=== PATIENT | female | born 1980 | race Caucasian/White ===

== ENCOUNTER 2017-04-17 20:40 | Inpatient (IN) ==
[~2017-04-17 20:40] MED LIST: Famotidine 20 MG/2 ML VIAL IVP PRN; Lidocaine 1% 20 ML MDV INFILT PRN; Naloxone 0.4 MG/ML INJ IVP PRN
[2017-04-17] MEDS ORDERED: Penicillin G Potassium 5,000,000 UNIT in 0.9 % Sodium Chloride Mini Bag 100 ML IVPB ONE (20:59)
[2017-04-17] MEDS ORDERED: Ringers Solution, Lactated 1,000 ML ONE (21:07)
[2017-04-17 21:14] LABS: Basophils # 0.1 K/mcL (0.0-0.2); Basophils % 0.7 %; Eosinophils # 0.1 K/mcL (0.0-0.6); Eosinophils % 0.7 %; Hematocrit 35.6 % (35.3-44.9); Hemoglobin 11.9 g/dL (11.5-15.4); Immature Granulocytes % 0.6 % (0-4); Lymphocytes # 2.9 K/mcL (0.6-4.6); Lymphocytes % 23.6 %; Mean Corpuscular HGB Conc 33.4 g/dL (31.6-35.5); Mean Corpuscular Hemoglobin 28.3 pg (28.0-33.3); Mean Corpuscular Volume 84.8 fL (83.0-100.0); Mean Platelet Volume 10.9 fL (9.4-12.4); Monocytes # 0.8 K/mcL (0.0-1.3); Monocytes % 6.7 %; Neutrophils # 8.2 K/mcL (1.6-8.9); Platelet Count 217 K/mcL (140-400); Segmented Neutrophils % 67.7 %
--- NOTE | 2017-04-17 21:19 | OB/GYN History & Physical ---
Date of Encounter: 04/17/17 Time of Encounter: 22:05 Assessment and Plan (1) Active labor at term Current visit: Yes Status: Acute Plan: - admit to labor and delivery - GBS+, start Penicillin - FHT reassuring. No signs of distress. - Expectant management. Patient does not desire epidural. - anticipate normal (2) 39 weeks gestation of Current visit: Yes Status: Acute (3) Advanced maternal age (AMA) in Current visit: Yes Status: Acute (4) Obesity affecting in third trimester Current visit: Yes Status: Acute (5) Hx of reactive hypoglycemia Current visit: Yes Status: Acute History of Present Illness Chief complaint: active labor HPI: Ms. Michael is a 36 y/o female at 39+1 weeks presented to labor and delivery for labor. Patient's is uncomplicated. Reports active movement. Patient denies vaginal bleeding, contractions, leakage of fluids. Denies N/V, changes in vision, LOPEZ. Patient follows up with Alyssa West CNM. Patient is not allergic to Penicillin. PNL: Blood type O+. GBS+, RI, HBsAG neg, HIV neg. RPR neg. Past Med Surg Social Fam HX - Past Medical History Medical history: no medical history Psychiatric history: depression - Past Surgical History Surgical History: no surgical history - Social History Smoking Status: Never smoker Smokeless Tobacco Status: No Alcohol use: none Drug use: none - Family History Father Living Status: Still Living Hx Family Cardiac Disorders: Yes (HTN) Hx Family Endocrine Disorder: Yes (DM) Obstetrical History - Pregnancies : 2 Para: 1 Term: 1 : 0 Ab's: 0 Livin - History/Complications History/Complications: Total pregnancies 2. Total living children 1. # 1: 11/13/12, 40+weeks, vaginal, Dr Brand, female, 7#. Medications and Allergies Vit/Iron Fumarate/FA [ Tablet] 1 each PO 04/17/17 [History] 3 Allergy/AdvReac Type Severity Reaction Status Date / Time No Known Allergies Allergy Verified 04/17/17 20:47 Review of System OB All systems PM: reviewed and no additional remarkable complaints except as stated Exam - Vital Signs Vital signs: BP:120/79, HR: 62 - Constitutional Constitutional: well developed, well nourished, no acute distress, obese - HEENT HEENT: EOMI - Neck Neck exam: full ROM - Lungs Respiratory exam: CTAB - Cardiovascular Cardiovascular exam: RRR - Abdomen Abdomen: Present: non tender - Extremities Extremities exam: normal inspection - Vagina Vagina: Present: normal moisture - Cervix Dilation: 7 (per nursing) Effacement: 100 (per nursing) Station: -1 - Uterus Uterus exam: Present: normal size Results Result Diagrams: 04/17/17 21:00 All other labs normal. - VTE Reasons for not Prescribing Prophylaxis: Treatment not Indicated - Low risk for VTE - Attending Attestation I examined this patient and my medical decision-making was reviewed with the Resident Physician. I agree with the documented findings, disposition and treatment plan as described. Jeannette West CNM
[2017-04-17 21:39] LABS: Amphetamine Screen,Urine Negative ng/mL (Cutoff=1000); Barbiturate Screen,Urine Negative ng/mL (Cutoff=200); Benzodiazepines Screen,Urine Negative ng/mL (Cutoff=200); Cannabinoid Screen,Urine Negative ng/mL (Cutoff = 50); Cocaine Screen,Urine Negative ng/mL (Cutoff= 300); Opiate Screen,Urine Negative ng/mL (Cutoff=300); Phencyclidine Screen,Urine Negative ng/mL (Cutoff=25)
[2017-04-17] MEDS ORDERED: Oxytocin 20 units/ LR 1000 mL 20 UNIT/1,000 ML BAG IVC ONE (23:44)
[2017-04-18] MEDS ORDERED: Lidocaine 1% 20 ML MDV ONE ×2 (00:07→00:42)
[2017-04-18] MEDS ORDERED: Penicillin G Potassium 2,500,000 UNIT in D5% in Water 100 ML IVPB SCH (01:00)
[2017-04-18] MEDS ORDERED: Penicillin G Potassium 2,500,000 UNIT in 0.9 % Sodium Chloride 100 ML IVPB SCH (01:00)
--- NOTE | 2017-04-18 01:10 | OB/GYN Procedure Note ---
Delivery - Delivery Date: 04/17/17 Provider: Katie West Intrapartum events: none Delivery induction: none Delivery monitor: external FHT Anesthesia: local Estimated Blood Loss: 150 - Infant (s) A Infant Delivery Date: 04/17/17 Delivery Time: 23:58 Presentation: vertex Position: CAREN Route of delivery: Gender: Female Viability: Viable Pounds: 7 Ounces: 4 Weight Gram: 3280 kg at 1 minute: 9 at 5 mins: 9 Shoulder Dystocia: not encountered Specimens collected: cord blood Placenta: spontaneous Cord: 3 umbilical vessels - Repair Episiotomy: none Laceration Description: Perineal - 3rd Degree - Complications Delivery complications: none Delivery comments: of vigorous viable male infant in the CAREN position. Shoulders delivered easily. No nuchal. Meconium stained anmniotic fluid. No shoulder dystosia. Infant placed on mom's belly. Apgars 9/9 at 1 and 5 minutes. Cord double clamped and cut after pulsations ceased. Placenta delivered spontaneously appears grossly intact. 3 vessel cord present. Upon peritoneal inspection, 3rd degree laceration closure with 2-0 vicryl and 3-0 monocryl. Hemostatsis s/p sutures. Bilateral hemostatic periurethral superficial lacerations stable and left to heal by second intention.Fundus firm and at u/2. EBL 100ml. Infant delivered by Belem West.[facility]. Assisted by Dr. Danuta Mcintosh . Dr. Huff brought in for 3rd degree closure. Pericare instructions given to patient. Infant and mother stable in recovery. - Disposition Mom disposition: stable in LDR [place] disposition: stable in LDR
[2017-04-18] MEDS ORDERED: Oxytocin 20 units/ LR 1000 mL 20 UNIT/1,000 ML BAG IVC ONE ×2 (01:27→01:33)
--- NOTE | 2017-04-18 01:30 | OB/GYN Procedure Note ---
Delivery - Delivery Date: 04/17/17 Provider: Katie West Intrapartum events: none Delivery induction: none Delivery monitor: external FHT Anesthesia: local Estimated Blood Loss: 150 - Infant (s) A Infant Delivery Date: 04/17/17 Delivery Time: 23:58 Presentation: vertex Position: CAREN Route of delivery: Gender: Female Viability: Viable Pounds: 7 Ounces: 4 Weight Gram: 3280 kg at 1 minute: 9 at 5 mins: 9 Shoulder Dystocia: not encountered Specimens collected: cord blood Placenta: spontaneous Cord: 3 umbilical vessels - Repair Episiotomy: none Laceration Description: Perineal - 3rd Degree - Complications Delivery complications: none Delivery comments: of vigorous viable male infant in the CAREN position. Shoulders delivered easily. No nuchal. Meconium stained anmniotic fluid. No shoulder dystosia. Apgars 9/9 at 1 and 5 minutes. Cord double clamped and cut after pulsations ceased. Placenta delivered spontaneously appears grossly intact. 3 vessel cord present. Upon peritoneal inspection, 3rd degree laceration closure with 2-0 vicryl and 3-0 monocryl. Hemostatsis s/p sutures. Bilateral hemostatic periurethral superficial lacerations stable and left to heal by second intention.Fundus firm and at u/2. EBL 150ml. delivered by Belem West.[facility]. Assisted by Dr. Danuta Mcintosh . Dr. Huff brought in for 3rd degree closure. Pericare instructions given to patient. and mother stable in recovery. Called to delivery room to assist third degree perineal laceration. Transverse perineal muscle was partially intact. Transverse perineal muscle was reapproximated with a 2-0 Monocryl. The remainder of the episiotomy was repaired with a 2-0 Monocryl on the mucosa and 2-0 Monocryl on the external vaginal mucosa. She tolerated procedure well. Anesthesia was 1% local 15 mL were used. - Disposition Mom disposition: stable in LDR disposition: stable in LDR
[2017-04-18] MEDS ORDERED: Oxytocin 20 units/ LR 1000 mL 20 UNIT/1,000 ML BAG IVC SCH (01:33)
[2017-04-18] MEDS ORDERED: Measles/Mumps/Rubella Vacc 0.5 ML VIAL SQ PRN (01:33)
[2017-04-18] MEDS ORDERED: Acetaminophen 325 MG TABLET PO PRN (01:33)
[2017-04-18] MEDS ORDERED: Benzocaine/Menthol 56 GM AEROSOL SPRAY TP PRN (01:33)
[2017-04-18] MEDS: Ibuprofen 600 MG TABLET PO PRN (06:05)
[2017-04-18] MEDS: Prenatal Vit/FA 1 EACH TABLET PO SCH (08:06)
--- NOTE | 2017-04-18 10:29 | OB/GYN Progress Note ---
Date of Encounter: 04/18/17 Time of Encounter: 10:27 - Assessment and Plan (1) Vaginal delivery Current Visit: Yes Status: Acute Continue routine care discharge home tomorrow (2) Breast feeding status of mother Current Visit: Yes Status: Acute Continue support prn Subjective - Subjective Principal diagnosis: Interval history: Patient resting in bed. Patient reports pain is well controlled. Patient is voiding without difficulty. Patient is breast feeding male . Patient reports: appetite normal, voiding normally, pain well controlled, ambulating normally : doing well, nursing well Objective - Latest Vital Signs Latest vital signs: Vital Signs Temp Pulse Resp BP Pulse Ox 04/18/17 07:30 99.0 F 50 16 87/53 04/18/17 05:05 98.5 F 51 16 122/76 98 04/18/17 04:05 98.4 F 61 14 107/63 96 04/18/17 02:55 98.1 F 62 16 103/67 97 Intake and Output 04/17/17 04/18/17 04/18/17 23:59 07:59 15:59 Intake Total 240 / 240 Output Total 1000 / 1000 800 / 800 Balance -1000 / -1000 -560 / -560 Intake: Oral 240 / 240 Output: Urine 1000 / 1000 800 / 800 Other: Meal Breakfast Percent of Meal Consumed 100% Weight 97.9 kg 89.1 kg Patient Weight 04/18/17 23:59 Weight 89.1 kg - Exam Lungs: bilateral: normal Extremities: Present: normal Abdomen: Present: normal appearance Uterus: Present: normal, firm Uterus Position: 1 Finger Below Umbilicus, Midline - Labs Labs: Laboratory Results - last 24 hr 04/17/17 04/17/17 21:00 21:15 WBC 12.1 H RBC 4.20 Hgb 11.9 Hct 35.6 MCV 84.8 MCH 28.3 MCHC 33.4 RDW 13.0 Plt Count 217 MPV 10.9 Immature Gran % 0.6 Seg Neutrophils % 67.7 Lymphocytes % 23.6 Monocytes % 6.7 Eosinophils % 0.7 Basophils % 0.7 Neutrophils # 8.2 Lymphocytes # 2.9 Monocytes # 0.8 Eosinophils # 0.1 Basophils # 0.1 Urine Opiates Screen Negative Ur Barbiturates Screen Negative Ur Phencyclidine Scrn Negative Ur Amphetamines Screen Negative U Benzodiazepines Scrn Negative Urine Cocaine Screen Negative U Marijuana (THC) Screen Negative
[2017-04-19] MEDS: Ibuprofen 600 MG TABLET PO PRN (00:52)
[2017-04-19 07:54] VITALS: BP 118/66
--- NOTE | 2017-04-19 08:30 | Discharge Summary ---
Date of Encounter: 04/19/17 Time of Encounter: 08:27 - Discharge Diagnosis (1) Breast feeding status of mother Priority: Secondary Status: Acute (2) Vaginal delivery Priority: Primary Status: Acute Comments: Pt states pain well managed on po pain medication, tolerates diet, , desires discharge. - Discharge Medications Prescriptions: Ibuprofen [Motrin] 600 mg PO Q6HR PRN #60 tablet PRN Reason: Cramping Docusate [Colace] 100 mg PO BID #60 capsule Home Medications: Vit/Iron Fumarate/FA [ Tablet] 1 each PO 04/17/17 [History] Acetaminophen [Tylenol] 650 mg PO Q6HR PRN tablet 04/19/17 [Rx] Benzocaine/Menthol [place] [Dermoplast [place]] 1 appl TP QID PRN aerosol 04/19/17 [Rx] Docusate [Colace] 100 mg PO BID #60 capsule 04/19/17 [Rx] Ibuprofen [Motrin] 600 mg PO Q6HR PRN #60 tablet 04/19/17 [Rx] Vit/FA 1 each PO DAILY tablet 04/19/17 [Rx] Allergies/Adverse Reactions: 3 Allergy/AdvReac Type Severity Reaction Status Date / Time No Known Allergies Allergy Verified 04/17/17 20:47 Data Procedures and tests throughout hospitalization: Laboratory Tests 04/17/17 04/17/17 21:00 21:15 WBC 12.1 H RBC 4.20 Hgb 11.9 Hct 35.6 MCV 84.8 MCH 28.3 MCHC 33.4 RDW 13.0 Plt Count 217 MPV 10.9 Immature Gran % 0.6 Seg Neutrophils % 67.7 Lymphocytes % 23.6 Monocytes % 6.7 Eosinophils % 0.7 Basophils % 0.7 Neutrophils # 8.2 Lymphocytes # 2.9 Monocytes # 0.8 Eosinophils # 0.1 Basophils # 0.1 Urine Opiates Screen Negative Ur Barbiturates Screen Negative Ur Phencyclidine Scrn Negative Ur Amphetamines Screen Negative U Benzodiazepines Scrn Negative Urine Cocaine Screen Negative U Marijuana (THC) Screen Negative Date of admission: 04/17/17 20:40 Primary care physician: PCP NONE Consults: 04/18/17 01:33 Consult to Operations Architect [CONS] Routine Comment: Vaginal delivery, consult needed Discharging clinician: Iveth Romero Anticipated date of discharge: 04/19/17 - Patient Status Disposition: Home, Self-Care Condition: Good Functional capacity at discharge: independent ambulation Overall status at discharge: patient is back to baseline - Discharge Instructions Follow Up With: NONE,PCP [Primary Care Provider] - - Diet and Activity Activity: resume usual activities as tolerated Diet: regular diet Hospital Course Reason for admission: active labor Delivery: Episiotomy: none Laceration: 3rd degree Other procedures: none complications: none Discharge diagnosis: IUP at term delivered [place] baby: female Hospital course: Delivery - Delivery Date: 04/17/17 Provider: Katie West Intrapartum events: none Delivery induction: none Delivery monitor: external FHT Anesthesia: local Estimated Blood Loss: 150 - Infant (s) A Delivery Date: 04/17/17 Infant Delivery Time: 23:58 Presentation: vertex Position: CAREN Route of delivery: Gender: Female Viability: Viable Pounds: 7 Ounces: 4 Weight Gram: 3280 kg at 1 minute: 9 at 5 mins: 9 Shoulder Dystocia: not encountered Specimens collected: cord blood Placenta: spontaneous Cord: 3 umbilical vessels - Repair Episiotomy: none Laceration Description: Perineal - 3rd Degree - Complications Delivery complications: none Delivery comments: of vigorous viable male in the CAREN position. Shoulders delivered easily. No nuchal. Meconium stained anmniotic fluid. No shoulder dystosia. Apgars 9/9 at 1 and 5 minutes. Cord double clamped and cut after pulsations ceased. Placenta delivered spontaneously appears grossly intact. 3 vessel cord present. Upon peritoneal inspection, 3rd degree laceration closure with 2-0 vicryl and 3-0 monocryl. Hemostatsis s/p sutures. Bilateral hemostatic periurethral superficial lacerations stable and left to heal by second intention.Fundus firm and at u/2. EBL 150ml. [facility] Assisted by Dr. Danuta Mcintosh . Dr. Huff brought in for 3rd degree closure. Pericare instructions given to patient. Infant and mother stable in recovery. Called to delivery room to assist third degree perineal laceration. Transverse perineal muscle was partially intact. Transverse perineal muscle was reapproximated with a 2-0 Monocryl. The remainder of the episiotomy was repaired with a 2-0 Monocryl on the mucosa and 2-0 Monocryl on the external vaginal mucosa. She tolerated procedure well. Anesthesia was 1% local 15 mL were used. - Disposition Mom disposition: stable in PP and appropriate for discharge Time Attestation: Total time spent providing and/or coordinating discharge services: Time Spent: Less than 30 minutes Exam - Constitutional Vitals: Temp Pulse Resp BP Pulse Ox 98.1 F 81 16 118/66 97 04/19/17 07:30 04/19/17 07:30 04/19/17 07:30 04/19/17 07:30 04/18/17 20:05 General appearance IM: A&O X 3 - Respiratory Respiratory exam: Present: CTAB - Cardiovascular Cardiovascular exam IM: Present: RRR - GI/Abdominal GI/Abdominal exam IM: normal bowel sounds, soft - Uterine Tone: Firm Uterus Position: 1 Finger Below Umbilicus - Extremities Exam Extremities exam IM: Present: normal capillary refill, normal inspection - Neurological Exam Neurological exam: normal gait, oriented X3 - Psychiatric Additional comments: Reports good mood.
[2017-04-19] MEDS: Prenatal Vit/FA 1 EACH TABLET PO SCH (09:08)
== END 2017-04-19 16:15 | disposition home or self-care (01) | DRG 775 ==
LOC: 1NENULAB → 1NENUOBS 04-18 02:56
PROVIDERS: ADMIT Obstetrics & Gynecology; ATTEND Obstetrics & Gynecology